=== PATIENT | male | born 1945 | race Two or more races ===

== ENCOUNTER 2019-07-06 11:32 | Emergency (ER) | payer OTHER ==
[~2019-07-06] VITALS: Ht 165.1 cm; Wt 73.5 kg
[~2019-07-06 11:32] MED LIST: CARDIZEM CD180 M1; CORGARD80 M1; HYDROCHLOROTHIA25 MG; PLAVIX75 MG; PRAVASTATIN SOD10 MG
[2019-07-06] MEDS ORDERED: CARTIA XT120 MG (12:03)
[2019-07-06] MEDS ORDERED: TOPROL XL100 M1 (12:04)
[2019-07-06] MEDS ORDERED: ASPIR 8181 MG (12:04)
== END 2019-07-06 20:00 | disposition home or self-care (01) ==
LOC: ER 11:32
DX: K57.30 Diverticulosis of large intestine without perforation or abscess without bleeding (principal); K40.90 Unilateral inguinal hernia, without obstruction or gangrene, not specified as recurrent

== ENCOUNTER 2020-12-04 09:15 | Emergency (ER) | payer OTHER ==
[~2020-12-04] VITALS: Ht 165.1 cm; Wt 71.2 kg
[~2020-12-04 09:15] MED LIST changes: +ASPIR 8181 MG; +CARTIA XT120 MG; +TOPROL XL100 M1
[2020-12-04] MEDS ORDERED: ZETIA10 MG (09:43)
== END 2020-12-04 13:44 | disposition home or self-care (01) ==
LOC: ER 09:15
DX: K57.30 Diverticulosis of large intestine without perforation or abscess without bleeding (principal); R10.32 Left lower quadrant pain; R10.31 Right lower quadrant pain

== ENCOUNTER 2021-03-27 10:41 | Emergency (ER) | payer OTHER ==
[~2021-03-27] VITALS: Ht 165.1 cm; Wt 70.3 kg
[~2021-03-27 10:41] MED LIST changes: +ZETIA10 MG
== END 2021-03-27 17:46 | disposition home or self-care (01) ==
LOC: ER 10:41
DX: B34.9 Viral infection, unspecified (principal); E86.0 Dehydration; E87.8 Other disorders of electrolyte and fluid balance, not elsewhere classified; R50.9 Fever, unspecified; R05 Cough; R53.81 Other malaise; Z20.822 Contact with and (suspected) exposure to COVID-19

== ENCOUNTER 2021-03-28 09:25 | Outpatient (CLI) | payer OTHER | END 2021-03-28 12:15 | disposition home or self-care (01) | LOC: ASH CLINIC 09:25 | PROVIDERS: ATTEND General Practice | DX: Z23 Encounter for immunization (principal); U07.1 COVID-19 ==

== ENCOUNTER 2025-03-11 18:46 | Emergency (ER) | payer OTHER ==
[~2025-03-11] VITALS: Ht 162.6 cm; Wt 72.6 kg
[~2025-03-11 18:46] MED LIST changes: +KETO10TA2 PO; +NORFLEX100MG PO
[2025-03-11] MEDS ORDERED: RAZADYNE ER16 MG PO (19:06)
[2025-03-11] MEDS ORDERED: ROSUVASTATIN CA20 MG PO (19:06)
[2025-03-11] MEDS ORDERED: ADULT LOW DOSE81 M1 PO (19:06)
[2025-03-11] MEDS ORDERED: 0.9 % SODIUM CHLORIDE 500 ML IV ONE (20:00)
[2025-03-11] MEDS ORDERED: KETOROLAC TROMETHAMINE 15 MG VIAL IV ONE (20:00)
[2025-03-11] MEDS ORDERED: FAMOTIDINE/PF 20 MG/2 ML VIAL IV ONE (20:00)
[2025-03-11 20:18] LABS: BASO % 0.6 % (0.1-1.2); EOS # 0.49 (0.04-0.54); EOS % 6.0 % (0.7-7.0); LYMPH # 1.28 (1.18-3.74); LYMPH % 15.8 % (19.3-53.1); MEAN PLATELET VOLUME 10.00 fl (9.4-12.4); MONO # 0.74 (0.24-0.82); MONO % 9.1 % (4.7-12.5); NEUT # 5.53 (1.56-6.13); NEUT % 68.3 % (34.0-71.1); RED CELL DISTRIBUTION WIDTH 14.2 % (11.6-14.4)
[2025-03-11 20:36] LABS: URINE APPEARANCE Clear; URINE BILIRRUBIN Negative (NEGATIVE); URINE BLOOD Small; URINE COLOR Yellow; URINE GLUCOSE Negative (NEGATIVE); URINE KETONE Negative (NEGATIVE); URINE LEUKOCYTE Negative; URINE NITRATE Negative; URINE PROTEIN 30 (NEGATIVE); URINE UROBILINOGEN 1.0 E.U./dl
[2025-03-11 20:37] LABS: URINE EPITHELIAL CELLS 1.6 uL (0.0-38.8); URINE RBC 36.0 uL (0.0-20.8)
[2025-03-11 20:38] LABS: URINE BACTERIA 3.5 uL (0.0-1933); URINE CAST 0.00 uL (0.0-1.40); URINE WBC 1.2 uL (0.0-23.2)
[2025-03-11 20:45] LABS: ALT/SGPT 35.0 U/L (12-78); AST/SGOT 18.0 U/L (15-37); BILIRUBIN TOTAL 0.6 mg/dL (0.3-1.2); BUN CREA RATIO 28.0 (7.0-25.0); CREATININE SERUM 1.29 mg/dL (0.70-1.30); GFR 53.87; GLOBULINA 4.1 G/DL (2.4-3.5); GLUCOSE FASTING 90.0 mg/dL (65-100); OSMOLALITY SERUM 289.0 MOSM/KG (275-295)
== END 2025-03-11 23:50 | disposition home or self-care (01) ==
LOC: ER 18:46
PROVIDERS: Emergency Medicine
DX: K57.32 Diverticulitis of large intestine without perforation or abscess without bleeding (principal); R10.32 Left lower quadrant pain; R10.9 Unspecified abdominal pain; I10 Essential (primary) hypertension; Z88.0 Allergy status to penicillin
CPT/HCPCS: 36415; 74177; 96365; 96366; 99284; J1885; J3490; J7042; Q9965

== ENCOUNTER 2025-04-24 10:34 | Emergency (ER) | payer OTHER ==
[~2025-04-24] VITALS: Ht 162.6 cm; Wt 72.6 kg
[~2025-04-24 10:34] MED LIST changes: +ADULT LOW DOSE81 M1 PO; +RAZADYNE ER16 MG PO; +ROSUVASTATIN CA20 MG PO
[2025-04-24] MEDS ORDERED: KETOROLAC TROMETHAMINE 30 MG VIAL IM ONE (13:45)
[2025-04-24] MEDS ORDERED: ORPHENADRINE CITRATE 30 MG/ML AMPUL IM ONE (13:45)
== END 2025-04-24 16:07 | disposition home or self-care (01) ==
LOC: ER 10:37
DX: M54.50 Low back pain, unspecified (principal); Z88.0 Allergy status to penicillin; I10 Essential (primary) hypertension
CPT/HCPCS: 72100; 96372; 99283; J1885; J2360